=== PATIENT | female | born 1990 | race Caucasian/White ===

== ENCOUNTER 2024-10-26 11:59 | Emergency (ER) | payer OTHER ==
[2024-10-26 12:08] VITALS: BMI 27.2
[2024-10-26] MEDS ORDERED: guaiFENesin/D-METHORPHAN HB 10 ML UNIT-DOSE CUPS ONE (13:25)
[2024-10-26] MEDS ORDERED: ACETAMINOPHEN 500 MG TABLET (FP) ONE (13:25)
[2024-10-26] MEDS: guaiFENesin/D-METHORPHAN HB 10 ML UNIT-DOSE CUPS PO ONE (13:33)
[2024-10-26] MEDS: ACETAMINOPHEN 500 MG TABLET (FP) PO ONE (13:33)
[2024-10-26 14:23] LABS: THROAT:GRP A STREP NOT DETECTED (NOTDETECTED)
[2024-10-26 16:23] VITALS: BP 116/67; PULSE 88; RESP 20; TEMP 98.1
== END 2024-10-26 16:39 | disposition home or self-care (01) ==
LOC: JERFT 11:59
DX: J10.1 Influenza due to other identified influenza virus with other respiratory manifestations (principal); R05.9 Cough, unspecified; R50.9 Fever, unspecified; M79.10 Myalgia, unspecified site; Z20.822 Contact with and (suspected) exposure to COVID-19
CPT/HCPCS: 0241U-QW; 87651; 99283-25